=== PATIENT | female | born 1940 | race Caucasian/White ===

== ENCOUNTER → 2017-09-20 | Outpatient (CLI) | payer OTHER, BC ==
[~2017-09-20] MED LIST: ADVIL100 M2; AMOXICILLIN/POTASSIU PO; DESYREL; EVISTA; HYDROCODON-ACE1 EAC7 PO; NORVASC10 MG PO
== END ==
LOC: RAD 09-18 00:49
DX: Z12.31 Encounter for screening mammogram for malignant neoplasm of breast (principal)